=== PATIENT | male | born 1990 | race Caucasian/White ===

== ENCOUNTER 2019-02-25 19:33 | Emergency (ER) | payer BC ==
[2019-02-25] MEDS ORDERED: TETANUS AND DIPHTHERIA PF 0.5 ML SYR IM ONE (19:48)
[2019-02-25] MEDS ORDERED: Diph,Pert(Acell),Tet Vac 0.5 ML SYR IM ONE ×2 (20:00→20:08)
--- NOTE | 2019-02-25 20:02 | Emergency Department Record ---
History of Present Illness - General Chief Complaint: Laceration(s) Stated Complaint: LACERATION Time Seen by Provider: 02/25/19 19:41 Source: Patient Mode of Arrival: Ambulatory Limitations: No limitations - History of Present Illness Initial Commments: Laceration to lower leg at home on metal. No other injury. No prior treatments. No DM. Onset/Timin -: Minutes(s) Place: Home, Outdoors Context: Accidental, Fall Associated Symptoms: None Treatments Prior to Arrival: Bandage - Lux Coma Scale Eye Response: (4) Open spontaneously Motor Response: (6) Obeys commands Verbal Response: (5) Oriented [place] Total: 15 - Related Data Year of Tetanus Vaccination: unknown Home Medications Medication Instructions Recorded Confirmed Last Taken No Home Med [NO HOME MEDS] 02/25/19 02/25/19 Unknown Allergies Allergy/AdvReac Type Severity Reaction Status Date / Time ketorolac tromethamine Allergy Unverified 04/09/18 11:09 [From Toradol] Travel Screening - Travel/Exposure Within Last 30 Days Have you traveled within the last 30 days?: No - Travel Symptoms Symptom Screening: None Review of Systems Constitutional: Denies: Chills, Fever, Weakness Eyes: Denies: Eye discharge, Photophobia ENT: Denies: Congestion, Ear pain Respiratory: Denies: Cough Cardiovascular: Denies: Chest pain Endocrine: Denies: Fatigue Gastrointestinal: Denies: Abdominal pain, Diarrhea Musculoskeletal: Reports: As per HPI Past Medical History - SOCIAL HISTORY Smoking Status: Never smoker Alcohol Use: None Drug Use: Rare Drug Use Detail:: Marijuana - RESPIRATORY Hx Respiratory Disorders: No - CARDIOVASCULAR Hx Cardio Disorders: No - NEURO Hx Neuro Disorders: No - GI Hx GI Disorders: No - Hx Genitourinary Disorders: No - ENDOCRINE Hx Endocrine Disorders: No - MUSCULOSKELETAL Hx Musculoskeletal Disorders: No - PSYCH Hx Psych Problems: No - HEMATOLOGY/ONCOLOGY Hx Hematology/Oncology Disorders: No Family Medical History Any Significant Family History?: No Family Hx Comment (NOT TO BE USED IN PLACE OF ITEMS BELOW): None Physical Exam - General General Appearance: Alert, Oriented x3, Cooperative - Head Head exam: Atraumatic - Eye Eye exam: PERRL - ENT ENT exam: Mucous membranes moist - Extremities Extremities exam: Full ROM, Normal capillary refill, Other (3 cm lac to left anterior lower allen into subcut tissue. No FB, no Nerve, artery, tendon seen on full exam. ). negative: Joint swelling, Pedal edema - Neurological Neurological exam: Alert, Normal gait, Oriented X3 - Skin Type of lesion: Laceration (as above) Course Vital Signs 02/25/19 19:38 Temperature 97.7 F Pulse Rate [ 96 H Pulse Ox Probe] Respiratory 20 Rate Blood Pressure 126/82 [Left Arm] Pulse Ox 100 - Reevaluation(s) Reevaluation #1: 02/25/19 20:06 seen and exam. Lac repair. Home Discussed signso f infection to watch for at home. Boostrix given. Disposition Disposition: Discharge Clinical Impression: Laceration of left leg Disposition: Home, Self-Care Condition: (1) Good Instructions: Laceration (ED) Additional Instructions: Sutures out in 7-10 days Forms: Patient Portal Access Time of Disposition: 20:02 Quality - Quality Measures Quality Measures: N/A - Blood Pressure Screening Does Patient Have Any of the Following: No Blood Pressure Classification: Pre-Hypertensive BP Reading Systolic Measurement: 126 Diastolic Measurement: 82 Screening for High Blood Pressure: < Pre-Hypertensive BP, F/U Documented > [[id number]] Pre-Hypertensive Follow-up Interventions: Follow-up with rescreen every year. Laceration - Other - Time Out Confirmed first & last name, , procedure, correct site?: Yes - Location Location of laceration:: Left, Lower Laceration located on:: Leg Laceration digit detail:: 1st Length of laceration:: 4 Length of laceration:: cm - Clean and Prep Laceration cleaning method:: Cleansed, Copious Irrigation Laceration cleaning agent:: Normal Saline - Local Anesthetic Lidocaine used:: 1% Lidocaine dose:: 2 mL - Medication Medicated for procedure?: No - Procedural Detail Foreign body in the wound?: No Undermining was preformed?: No Skin suture pattern:: Interrupted Suture material/size:: 4-0: Prolene Number of skin sutures:: 3 - Post Procedural Detail Complications:: No Procedure Tolerated by Patient:: Well
== END 2019-02-25 20:14 | disposition home or self-care (01) ==
LOC: ER 19:33
DX: S81.812A Laceration without foreign body, left lower leg, initial encounter (principal); W01.10XA Fall on same level from slipping, tripping and stumbling with subsequent striking against unspecified object, initial encounter; Y92.007 Garden or yard of unspecified non-institutional (private) residence as the place of occurrence of the external cause
CPT/HCPCS: 12032; 90715; 96372; 99283; 99284